=== PATIENT | female | born 1955 | race Caucasian/White ===

== ENCOUNTER 2023-12-05 12:50 | Emergency (ER) | payer MEDICARE ==
[~2023-12-05] VITALS: Ht 157.5 cm; Wt 65.8 kg
[2023-12-05 12:50] VITALS: BP_SYST 134; PULSE 81; RESP 19; TEMP 97; O2SAT 99
[2023-12-05] MEDS ORDERED: LIDOCAINE/EPI 1% 1:100000 20 ML VIAL ONE (15:57)
[2023-12-05] MEDS ORDERED: BACITRACIN 1 GM OINT TP ONE (16:23)
[2023-12-05] MEDS ORDERED: NEOM28.36 TP (16:34)
== END 2023-12-05 17:09 | disposition home or self-care (01) ==
LOC: SED 12:50
DX: S05.31XA Ocular laceration without prolapse or loss of intraocular tissue, right eye, initial encounter (principal); M79.601 Pain in right arm; M25.551 Pain in right hip; M25.511 Pain in right shoulder; I10 Essential (primary) hypertension; W01.0XXA Fall on same level from slipping, tripping and stumbling without subsequent striking against object, initial encounter; Y93.89 Activity, other specified; Y92.89 Other specified places as the place of occurrence of the external cause; Y99.8 Other external cause status
CPT/HCPCS: 70450-TC; 72170-TC; 73030; 73060; 73552; 73560; 99284